=== PATIENT | male | born 1990 | race Caucasian/White ===

== ENCOUNTER 2017-10-21 07:19 | Emergency (ER) | payer OTHER ==
[~2017-10-21] VITALS: Ht 188 cm; Wt 92.1 kg
[~2017-10-21 07:19] MED LIST: AMOX1TAB58 PO
[2017-10-21 07:30] VITALS: BP 127/74
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
== END 2017-10-21 08:06 | disposition home or self-care (01) ==
LOC: ER 07:19
DX: Z77.21 Contact with and (suspected) exposure to potentially hazardous body fluids (principal)
CPT/HCPCS: 86703; 86705; 86709; 86803; 87340; 99284